=== PATIENT | male | born 1990 | race Caucasian/White ===

== ENCOUNTER 2019-07-04 20:58 | Inpatient (IN) | payer OTHER ==
[~2019-07-04] VITALS: Ht 185.4 cm; Wt 87.5 kg
[~2019-07-04 20:58] MED LIST: CORTISPORIN OTI10 ML OTIC; HYDROCODON-ACE1 EACH PO; IBUPROFEN 600600 M1 PO; IBUPROFEN 800800 MG PO; NOHOMEMEDICATIONS; NORCO 5-325 TA1 EACH PO; PENICILLIN VK500 MG PO; ZPAK PO
[2019-07-04 21:01] VITALS: BP 167/104
[2019-07-04] MEDS ORDERED: PEPCID20 MG PO (21:04)
[2019-07-04] MEDS ORDERED: TOPROL XL25 MG PO (21:04)
[2019-07-04 22:14] LABS: ABSOLUTE EOSINOPHILS 0.2 thou/uL (0.0-0.7); ABSOLUTE LYMPHOCYTES 1.7 thou/uL (0.8-5.3); ABSOLUTE MONOCYTES 0.8 thou/uL (0.0-1.2); ABSOLUTE NEUTROPHILS 7.5 thou/uL (1.6-8.1); BASOPHILS 0.1 %; EOSINOPHILS 1.8 %; HEMATOCRIT 47.9 % (42.0-52.0); HEMOGLOBIN 17.2 gm/dL (14.0-18.0); LYMPHOCYTES 16.7 %; MCHC 35.9 g/dL (28.0-37.0); MCV 86.1 fL (80.0-100.0); MPV 9.5 fl. (7.2-11.1); NUCLEATED RBCS 0 /100WBC; PLATELET COUNT* 265 thou/uL (150-400); POLYS 73.4 %; RBC 5.56 mil/uL (4.50-6.00); RDW-CV 13.6 % (10.5-14.5); WBC 10.2 thou/uL (4.0-11.0)
[2019-07-04 22:19] LABS: CALCIUM 9.1 mg/dL (8.5-10.1); CREATININE 1.2 mg/dL (0.6-1.3); POTASSIUM 3.9 mmol/L (3.5-5.1)
[2019-07-04 22:30] LABS: ALBUMIN 4.3 g/dL (3.4-5.0); TOTAL BILIRUBIN 0.6 mg/dL (<0.1-1.0); TOTAL PROTEIN 7.7 g/dL (6.4-8.2)
[2019-07-04 23:20] VITALS: BP 125/89
[2019-07-05] VITALS: BP 122/55
[2019-07-05 00:23] LABS: PLATELET ESTIMATE ADEQUATE
[2019-07-05 04:00] VITALS: BP 109/70
--- NOTE | 2019-07-05 05:32 | NUR ---
PT RECIEVED FROM ED IN ROOM 231. ALERT AND ORIENETD X4. DENIES PAIN AND SOB. SAT MAINTAINED IN RA. CALL LIGHT WITHIN REACH AND BED IN LOW POSITION. HOURLY ROUNDING DONE FOR PT SAFETY.
--- NOTE | 2019-07-05 07:05 | NUR ---
CHANGE OF SHIFT BEDSIDE REPORT GIVEN PATIENT SEEN AT BEDSIDE, IN BED RESTING ASSUMED PATIENT CARE
[2019-07-05 08:00] VITALS: BP 133/92
[2019-07-05 08:58] LABS: URINE BLOOD NEGATIVE (Negative); URINE CLARITY CLEAR; URINE COLOR YELLOW; URINE GLUCOSE-RANDOM NEGATIVE (Negative); URINE KETONES NEGATIVE (Negative); URINE LEUKOCYTES-REFLEX NEGATIVE (Negative); URINE NITRITE-REFLEX NEGATIVE (Negative); URINE PROTEIN NEGATIVE (Negative); URINE SPECIFIC GRAVITY >= 1.030 (1.005-1.030); URINE UROBILINOGEN 0.2 E.U./dl (0.2-1.0)
[2019-07-05 08:59] LABS: ICTOTEST (BILI CONFIRMATORY) Negative (Negative); URINE BILIRUBIN 1+ (Negative)
[2019-07-05 10:49] LABS: CHOLESTEROL 168 mg/dL (<200); HDL CHOLESTEROL 33 mg/dL (>40); LDL CHOLESTEROL 107 mg/dL (<100); TC:HDL 5.1 Ratio (Not establshd); TRIGLYCERIDE 142 mg/dL (<150); VLDL 28 mg/dL (<40)
[2019-07-05 10:51] LABS: SERUM ASSESSMENT Clear
--- NOTE | 2019-07-05 11:08 | EKG ---
[place] [address] ELECTROCARDIOGRAM REPORT Name: ADRIEL LORA Room: [address] ADM IN .R.#: [id number] Admission: 07/04/19 Attend Phys: Miri Foster Discharge: Date of : 86 Report #: [id number] THIS REPORT FOR: //name// [facility] ED Test Date: 2019-07-04 Test Time: 21:00:43 Pat Name: ADRIEL LORA Department: Room: [facility] Gender: M Stunt Driver: [place] : 1990 Requested By: Edelmira Natarajan Order Number: [id number] MD: Jason Rizo Measurements Intervals [place] Rate: 96 P: 68 ME: 143 QRS: 55 QRSD: 102 T: 51 QT: 335 QTc: 424 Interpretive Statements Sinus rhythm RSR' in V1 or V2, probably normal variant No previous ECG available for comparison Electronically Signed On 07-05-2019 11:07:45 VERIFICATION LEAD by Jason Rizo [email or web address] <ELECTRONICALLY SIGNED> By: Jason Rizo MD, [facility] 07/05/19 1107 99 99 Jason Rizo MD, FACC /EPI
--- NOTE | 2019-07-05 11:16 | NUR ---
MET WITH PT TO DISCUSS HOME SITUATION/DC PLANNING. PT LIVES ALONE, WORKS AND IS INDEPENDENT AND ACTIVE. DOESN'T HAVE A PCP, DISCUSSED USING INSURANCE WEBSITE TO OBTAIN. PT DENIES NEEDS
--- NOTE | 2019-07-05 14:28 | EKG ---
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
[2019-07-05 16:47] LABS: AMP/METHAMP POSITIVE (Negative); BARBITURATES POSITIVE (Negative); BENZODIAZEPINES Negative (Negative); COCAINE Negative (Negative); METHADONE Negative (Negative); OPIATES POSITIVE (Negative); PCP Negative (Negative); THC Negative (Negative)
--- NOTE | 2019-07-05 17:15 | CARDNUC ---
[place] [address] CARDIAC NUCLEAR IMAGING REPORT Name: GUIDOADRIEL Back Room: [address] IN [facility]#: [id number] Admission: 07/04/19 Attend Phys: Fide Linn Discharge: Date of : 86 Date of Service: 07/05/19 1714 Report #: [id number] THIS REPORT FOR: //name// APPROVED REPORT Study performed: 07/05/2019 09:40:00 Indication: Chest pain, Dyspnea, SVT, Palpitations, Dizziness. Patient Location: In-Patient Room #: [facility] Stress Tech: Ashly Kaur Stress Nurse: Lucero Colindres RN Ht: 6 ft 1 in Wt: 180 lbs BSA: 2.06 m2 BMI: 23.74 Medical History Medical History: Angina, Dyspnea, SVT, Lightheadedness/dizziness, Palpitations, ETOH/Meth use, Current Smoker. Medications: Metoprolol Allergies: No known drug allergies Cardiac Risk Factors: Current Smoker, FHX of CAD, SOB, ETOH/Meth use, SVT. Previous Cardiac Procedures: None Pretest Chest Pain Characteristics: Chest tightness 3/10. Exercise History: Physically active Physical Disabilities: Dizziness, Lightheaded. Meds Held (24 hrs): Metoprolol Resting Data Rest SPECT myocardial perfusion imaging was performed in supine position 30 minutes following the intravenous injection of 11.8 mCi of Tc-99m Sestamibi. Time of rest injection: 11:30 The images were gated to evaluate regional wall motion and calculate left ventricular ejection fraction. Administration Route: IV Administration Site: Right Hand Pharmacologic Stress Pharmacologic stress test was performed by injecting Regadenoson 0.4 mg IV push over 10-15 seconds immediately followed by the intravenous injection of 34.2 mCi of Tc-99m Sestamibi. Time of stress injection: 13:30 [place] [address] CARDIAC NUCLEAR IMAGING REPORT Name: ADRIEL LORA Room: [address]#: [id number] Admission: 07/04/19 Attend Phys: Fide Linn Discharge: Date of : 86 Date of Service: 07/05/19 1714 Report #: [id number] Administration Route: IV Administration Site: Right Hand Heart Rate at time of stress injection: 133 bpm. Gated Stress SPECT was performed 45 minutes after stress injection. The images were gated to evaluate regional wall motion and calculate left ventricular ejection fraction. Prone imaging was performed. Stress Test Details Stress Test: Pharmacologic stress testing performed using 0.4 mg of regadenoson per 5 mL given IV over 10 seconds. Reason for pharmacologic stress test: Lightheaded, dizzy.. HR Max Heart Rate (APMHR): 190 bpm Resting HR: 74 bpm Target HR (85% APMHR): 161 bpm Max HR Achieved: 143 bpm % of APMHR: 75 Recovery HR: 94 bpm BP Resting BP: 128/89 mmHg Max BP: 129/81 mmHg Recovery BP: 139/82 mmHg ECG Resting ECG: Sinus Rhythm Stress ECG: Sinus Tachycardia ST Change: None Arrhythmia: None Recovery ECG: Sinus Rhythm Recovery ST Change: None Recovery Arrhythmia: None Clinical Reason for Termination: Completed protocol Stress Symptoms: Chest tightness 8/10, diaphoresis, headache, dizzy, lightheaded, stomach pain. Exercise duration: 00 min 00 sec Exercise capacity: 1.00 METs Patient tolerated Lexiscan infusion without significant exacerbation of symptoms. Nurse Comments A 28 year old male inpatient presented for a Nuclear Med Stress Test r/t CP, SVT, palpitations and dyspnea. Due to dizziness/lightheadedness, [place] [address] CARDIAC NUCLEAR IMAGING REPORT Name: LORA,ADRIEL Back Room: [address]#: [id number] Admission: 07/04/19 Attend Phys: Fide Linn Discharge: Date of : 86 Date of Service: 07/05/19 1714 Report #: [id number] safety. Test tolerated. Recovery unremarkable with PO caffeine, effective. Patient was escorted by staff via wheelchair to Nuclear Medicine for imaging. Patient was stable and stated he felt better at that time. Stress ECG Conclusion Baseline 12-lead EKG shows sinus rhythm without significant ST segment or T wave abnormality. EKGs obtained during and post Lexiscan infusion show sinus rhythm and sinus tachycardia with no significant ST segment changes when compared to baseline. There were no stress-induced arrhythmias. Study Quality Study: Good Artifact: No artifact Study Data At rest, the left ventricular ejection fraction was 72%.. Post stress, the left ventricular ejection was 68%.. TID = 1.04. Perfusion Perfusion images obtained at rest and post Lexiscan stress show uniform uptake of the radioisotope throughout the myocardium without defect. Wall Motion Normal left ventricular wall motion. Nuclear Conclusion ECG Findings: negative for ischemia Clinical Findings: negative for ischemia Nuclear Findings: negative for ischemia Exercise Capacity: not assessed Left Ventricular Function: normal Risk Study: low Myocardial perfusion images show no defect to suggest infarct or ischemia. Left ventricular systolic function appears normal on gated studies. This is a low risk study. <Conclusion> Baseline 12-lead EKG shows sinus rhythm without significant ST segment or T wave abnormality. EKGs obtained during and post Lexiscan infusion show sinus rhythm and sinus tachycardia [place] [address] CARDIAC NUCLEAR IMAGING REPORT Name: ADRIEL LORA Room: [address] IN [facility]#: [id number] Admission: 07/04/19 Attend Phys: Fide Linn Discharge: Date of : 86 Date of Service: 07/05/19 1714 Report #: [id number] segment changes when compared to baseline. There were no stress-induced arrhythmias. <ELECTRONICALLY SIGNED> By: Rosalino Samano MD, FACC 07/05/191713 13 13 Rosalino Samano MD, FACC /INF
[2019-07-05 17:43] VITALS: BP 112/71
[2019-07-05 20:10] VITALS: BP 117/77
[2019-07-06] VITALS: BP 115/66
[2019-07-06 04:00] VITALS: BP 113/71
[2019-07-06 04:05] VITALS: BP 117/77
[2019-07-06 04:10] VITALS: BP 120/66
--- NOTE | 2019-07-06 05:49 | NUR ---
PT CARE ASSUMED AT 1930. SAT MAINTAINED IN RA. ALERT AND ORIENTED X4. C/O PAIN, MEDICATION GIVEN PER EMAR. CALL LIGHT WITHIN REACH AND BED IN LOW POSITION. HOURLY ROUNDING DONE FOR PT SAFETY.
[2019-07-06 08:22] VITALS: BP 117/80
--- NOTE | 2019-07-06 09:05 | NUR ---
ASSUMED CARE OF PT THIS AM AROUND 07- CRUSHER OPERATOR IN PLACE ORDERED, TRACING SR- UPON ASSESSMENT PT NOTED TO BE RESTING IN BED- PT A&O X4- CONTINENT OF B/B- UP AD-MILLICENT IN ROOM, STEADY GAIT NOTED- LCTA, DIMINISHED IN BASES- RESP EVEN AND UN-LABORED- VSS, O2 SAT 95% ON RA-ABD SOFT/ROUND/NON-TENDER, BS X4 QUADS- LAST BM REPORTED X2 DAYS AGO- IV NOTED TO RIGHT HAND INTACT AND SL- GOOD PO INTAKE NOTED THIS AM WITH BREAKFAST- OKAY TO D/C PER CARDIO THIS AM- CALL LIGHT AND PERSONAL BELONGINGS WITH IN REACH- PT MAKES NEEDS KNOWN- ALL NEEDS MET AT THIS TIME-WCTM
[2019-07-06 11:31] VITALS: BP 117/80
== END 2019-07-06 12:30 | disposition home or self-care (01) | DRG 310 ==
LOC: M.ERS 20:58 → M.2W 22:36 → M.TBA-ER 22:36 → M.2W 23:28
PROVIDERS: Emergency Medicine; Internal Medicine; Registered Nurse; ADMIT Internal Medicine
DX: I47.1 Supraventricular tachycardia (principal); F17.210 Nicotine dependence, cigarettes, uncomplicated; I48.92 Unspecified atrial flutter; K25.9 Gastric ulcer, unspecified as acute or chronic, without hemorrhage or perforation; E78.5 Hyperlipidemia, unspecified; F10.10 Alcohol abuse, uncomplicated; F19.10 Other psychoactive substance abuse, uncomplicated; Z79.899 Other long term (current) drug therapy; Z82.49 Family history of ischemic heart disease and other diseases of the circulatory system

== ENCOUNTER → 2019-08-16 | Outpatient (CLI) | payer OTHER ==
[~2019-08-16] MED LIST changes: +PEPCID20 MG PO; +TOPROL XL25 MG PO
== END ==
LOC: M.ULTRA 13:12
DX: I86.1 Scrotal varices (principal); N43.3 Hydrocele, unspecified

== ENCOUNTER → 2020-02-16 | Outpatient (CLI) | payer OTHER | LOC: M.MRI 16:00 | PROVIDERS: ATTEND Family Medicine | DX: R51 Headache (principal); J32.8 Other chronic sinusitis ==

== ENCOUNTER 2020-06-26 11:15 | Emergency (ER) | payer OTHER ==
[~2020-06-26] VITALS: Ht 185.4 cm; Wt 99.8 kg
[2020-06-26] MEDS ORDERED: ZOLOFT50 M1 PO (11:25)
[2020-06-26] MEDS ORDERED: FLEXERIL PO (12:45)
[2020-06-26] MEDS ORDERED: MEDROLDOSEPACK PO (12:45)
[2020-06-26 13:05] VITALS: BP 131/70
== END 2020-06-26 13:05 | disposition home or self-care (01) ==
LOC: M.ERS 11:15
DX: S52.501A Unspecified fracture of the lower end of right radius, initial encounter for closed fracture (principal); M62.838 Other muscle spasm; Z79.899 Other long term (current) drug therapy; W01.0XXA Fall on same level from slipping, tripping and stumbling without subsequent striking against object, initial encounter; Y93.89 Activity, other specified; Y92.89 Other specified places as the place of occurrence of the external cause; Y99.8 Other external cause status